=== PATIENT | female | born 1955 | race Caucasian/White ===

== ENCOUNTER → 2019-05-11 | Day surgery (SDC) | payer OTHER ==
--- NOTE | 2019-05-12 07:09 | OP ---
DATE OF OPERATION: 05/11/2019 PREOPERATIVE DIAGNOSES: Right breast mass and right axillary adenopathy, suspicious. POSTOPERATIVE DIAGNOSES: Right breast mass and right axillary adenopathy, suspicious. PROCEDURE: Right axillary lymph node and right breast ultrasound-guided core biopsies. ANESTHESIA: Local. ATTENDING SURGEON: Julienne Belle MD ESTIMATED BLOOD LOSS: Minimal. COMPLICATIONS: None. PROCEDURE: Patient was made aware of the risks and benefits of the procedure and consented. The right axillary node was approached first. Under sterile conditions with 1% lidocaine for local anesthesia a small melissa was made in the skin. Using a 13-gauge suction biopsy device via inferior approach under ultrasound guidance multiple cores were obtained and submitted to Pathology. Likewise under ultrasound guidance an open coil HydroMARK clip was placed into the biopsy region. Well tolerated by patient. Steri-Strip and a sterile bandage were applied. The right breast mass at the 12 o'clock position, 3-4 cm from the nipple, was then approached. Under sterile conditions with 2% lidocaine for local anesthesia a small melissa was made in the skin and using a 13-gauge suction biopsy device under ultrasound guidance multiple cores were obtained and submitted to Pathology. Likewise under ultrasound guidance a bow tie clip was placed into the biopsy region. Well tolerated by patient. Steri-Strip and a sterile bandage were applied. There was an additional lesion in the 6 o'clock region, but after speaking with the referring physician, Dr. Morales, we elected to have her get a breast MRI assuming this is a malignancy and approach that lesion after that assessment. JULIENNE BELLE M.D. [id number]
--- NOTE | 2019-05-12 15:05 | PATH ---
Surgical Pathology Report Patient Name: FREDDY MARR [facility]. Rec. #: [id number] /Age/Gender: 1955 (Age: 63) / F Account: [id number] Location: [facility] Taken: 05/11/2019 Received: 05/11/2019 Reported: 05/12/2019 Physicians: Jacobo Morales M.D. Specimen(s) Received A: RIGHT AXILLA LYMPH NODE B: RIGHT BREAST 12:00 3-4 CM FN Clinical History Palpable mass Ultrasound findings: Highly suspicious/malignant Final Diagnosis A. RIGHT AXILLA LYMPH NODE, BIOPSY: METASTATIC CARCINOMA IN A BACKGROUND OF FIBROTIC AND LYMPHOID TISSUE. CARCINOMA MEASURES 1.4 CM IN GREATEST DIMENSION ON THIS SLIDE. Comment: The carcinoma morphologically is similar to the tumor in specimen B. B. RIGHT BREAST BIOPSY 12:00, 3-4 CM FN, BIOPSY: INVASIVE DUCTAL CARCINOMA, POORLY DIFFERENTIATED, MEASURING 1.1 CM IN LENGTH ON THIS SLIDE. Results of Estrogen Receptor (ER) and Progesterone Receptor (CT) studies performed on block "B1" at [facility] are as follows: ER (clone [id number] mouse monoclonal antibody by [employer]): <1% nuclear staining (Negative). CT (clone16 mouse monoclonal antibody by [employer]): 0% nuclear staining (Negative). Positive and negative controls (internal if applicable) show appropriate results. Formalin fixation and cold ischemic times are within current ASCO/CAP recommendations for ER, CT and Her2 testing. Comment: Immunohistochemical stain E-Cadherin performed and interpreted at [facility] shows diffuse membranous staining in the tumor cells, supports a ductal phenotype. Reports for Her 2 and Ki-67 to follow. Electronically Signed Jag Angel M.D. Addendum Reported: 05/13/2019 Addendum Diagnosis Biomarker Studies Results of Her2 (IHC) & Ki-67 studies performed on this specimen (block B1) at [place], [place] ([id number]) interpreted at [facility] are as follows: Her2 IHC (EP3 from [employer], formerly known as [id number], using Foster Polymer Refine detection kit): 3+ (Positive) Ki-67: ~40% (high proliferative index) Kiyoe Angel, M.D. Gross Description A. Received in formalin labeled "right axillary biopsy site 1," is a 1.7 x 1.0 x 0.1 cm aggregate of multiple hammond-yellow, irregular to cylindrical portions of fibroadipose tissue. The formalin is filtered and the specimen is entirely submitted in one cassette. B. Received in formalin labeled "right breast biopsy 12:00, 3-4 cm fn site 2," is a 1.7 x 1.5 x 0.2 cm aggregate of multiple hammond-yellow, irregular to cylindrical portions of fibroadipose tissue. The formalin is filtered and the specimen is entirely submitted in one cassette. Time to formalin fixation: Less than one minute Total formalin fixation time: Approximately 8 hours. 05/11/2019 [facility]05/11/2019
== END | disposition home or self-care (01) ==
LOC: FRADUS-SUR 08:14
PROVIDERS: ATTEND Surgery Surgical Oncology
PROC: 0HBT3ZX Excision of Right Breast, Percutaneous Approach, Diagnostic (ICD-10-PCS; principal; 2019-05-11)
PROC: 07B53ZX Excision of Right Axillary Lymphatic, Percutaneous Approach, Diagnostic (ICD-10-PCS; 2019-05-11)
PROC: BH40ZZZ Ultrasonography of Right Breast (ICD-10-PCS; 2019-05-11)
DX: C50.811 Malignant neoplasm of overlapping sites of right female breast (principal); C77.3 Secondary and unspecified malignant neoplasm of axilla and upper limb lymph nodes; Z17.1 Estrogen receptor negative status [ER-]; N63.10 Unspecified lump in the right breast, unspecified quadrant; R59.0 Localized enlarged lymph nodes
CPT/HCPCS: 19083; 76942-TC; 87899; 88305-TC; 88342-TC; A4648

== ENCOUNTER 2019-11-12 08:42 | Inpatient (IN) | payer OTHER ==
[2019-11-03 15:37] VITALS: BMI 22.8
--- NOTE | 2019-11-05 15:08 | HP ---
Admitting History and Physical - Primary Care Physician PCP: mariposa - Admission Chief Complaint: right breast cancer History of Present Illness: Patient is a 64 yo female who was noted to have a highly suspicious right breast mass and axillary lymph node on mammo and US on 05/05/19. The patient underwent us guided core biopsies on 05/11/19 which was c/w invasive ductal carcinoma (poorly dif) with metastatic right axillary lymph node ER/NM neg, Her 2 p ositive. The MRI done 05/13 was c/w more extensive dz superior to the known cancer. A core bx was recommended but patient opted to have a mastectomy after neoadjuvant chemo. Patient's MRI done 10/26 showed complete imaging response to chemotherapy. Patient is now to undergo bilateral mastectomy with right snbx (mag seed loc), lymphoscintogram possible andx with reconstruction. History Source: Patient - Past Medical History Heme/Onc: Yes: Cancer (05/2019-breast cancer) - Past Surgical History Additional Past Surgical History: TAHIR/BSO left breast exc bx (95) - Smoking History Smoking history: Never smoked Home Medications - Allergies Allergies/Adverse Reactions: Allergies Allergy/AdvReac Type Severity Reaction Status Date / Time No Known Allergies Allergy Verified 11/03/19 15:24 - Home Medications Home Medications: Ambulatory Orders Cholecalciferol (Vitamin D3) [Vitamin D3 -] 1,000 unit PO DAILY 11/03/19 Gabapentin [Neurontin -] 300 mg PO HS PRN 11/03/19 LORazepam [Ativan] 0.5 mg PO TID PRN 11/03/19 Metoprolol Succinate [Toprol Xl] 50 mg PO DAILY 11/03/19 Olanzapine [Zyprexa -] 2.5 mg PO HS 11/03/19 Pertuzumab [Perjeta] 420 mg IV ASDIR 11/03/19 Trastuzumab [Herceptin] 150 mg IV ASDIR 11/03/19 Family Medical History Family Hx Cancer: Sister (breast cancer at 48) Other Family History: paternal cousin-breast cancer at 36. paternal aunt-breast cancer at 30. pat great aunt-postmenopausal breast cancer. sister-Multiple myeloma. mat GM-ovarian cancer. sister x 2-BRCA 2 pos Review of Systems - Review of Systems Constitutional: reports: Loss of Appetite, Unintentional Wgt. Loss Gastrointestinal: reports: Constipation Physical Examination Constitutional: Yes: Well Nourished, Calm Breast(s): Yes: Other (Ptotic B cup breasts without skin changes or nipple discharge. On palpation, no masses noted at the right 12 oclock position (prev palpable). No other suspicious masses or adenopathy noted bilaterally.) Problem List - Problems (1) Breast cancer, right breast Code(s): C50.911 - MALIGNANT NEOPLASM OF UNSP SITE OF RIGHT FEMALE BREAST Qualifiers: Breast location: overlapping sites of breast Estrogen receptor status: negative Patient sex: female Qualified Code(s): C50.811 - Malignant neoplasm of overlapping sites of right female breast; Z17.1 - Estrogen receptor negative status [ER-] Assessment/Plan Plan Bilateral mastectomy right sentinel node bx with mag seed placement, lymphoscintogram, possible axillary node dissection with reconstruction
--- NOTE | 2019-11-11 13:57 | OP ---
DATE OF OPERATION: 11/11/2019 PREOPERATIVE DIAGNOSIS: Right breast cancer overlapping regions, status post neoadjuvant chemotherapy. POSTOPERATIVE DIAGNOSIS: Right breast cancer overlapping regions, status post neoadjuvant chemotherapy. PROCEDURE: Bilateral total mastectomies with a right axillary sentinel lymph node biopsy as well as localized axillary lymph node biopsy with bilateral subpectoral direct implant reconstruction by Dr. Jones using acellular dermal matrix. ANESTHESIA: General anesthesia. PRIMARY SURGEON: Jacobo Morales MD PROFESSOR OF RHETORIC: STACY Montenegro Primary surgeon for the bilateral direct implant reconstruction is Dr. Jacobo Jones. COMPLICATIONS: None. INDICATION FOR PROCEDURE: Briefly, the patient is a 64-year-old postmenopausal female with [place] descent. She has a strong family history with a sister with breast cancer at age 48. A paternal cousin had breast cancer at age 36. A paternal aunt had breast cancer in her 30s, and a paternal great-aunt also had breast cancer. Two of her sisters tested BRCA2 positive, but the patient herself tested negative. The patient underwent a TAHIR/BSO in the past. She had a left breast fibroadenoma excised in 2014. She then was found to have an abnormal mammography in February 2019 with a 1-cm density in the right breast 12 o'clock region with a suspicious node seen in the right axillary region. core biopsy of the breast showed a poorly differentiated invasive duct cancer which was ER/TN negative, HER-2/yu positive with a Ki-67 of 40%. Node biopsy was positive as well. MRI showed the main cancer was from disease superior to the main lesion. She underwent TCHP chemotherapy which finished on October 06, 2018. Followup MRI showed a complete radiologic response. The patient was advised on undergoing mastectomy on the right side, chose to have prophylactic mastectomy on the left. She understood the need for a sentinel lymph node biopsy on the right side with localized biopsy as well of the previously biopsy-positive node with possible axillary lymph node dissection. She was brought in for the procedure on November 11, 2019. She was seen by Plastic Surgery preoperatively and decided on bilateral direct implant reconstruction. The patient was brought in for the procedure on November 11, 2019, and at [facility] underwent a lymphoscintigraphy with a right breast periareolar injection of technetium 99. She also had a Magseed placement into the previously biopsied right axillary lymph node. She was brought to the [place] holding area. DESCRIPTION OF PROCEDURE: In the holding area, site verification was made and informed consent was obtained. She was brought into the operating room, laid on the OR table in the supine position. She did have preoperative COVID testing which was negative and was marked preoperatively by the plastic surgeon as well. She was given 2 g of Ancef prior to incision, and both breasts were sterilely prepped and draped in the usual fashion. Venodynes were placed on the lower extremities prior to induction. Lymphazurin blue, 3 mL, was injected intradermally around the right breast nipple-areolar complex, and she was sterilely prepped and draped. Once she was properly anesthetized, the right axillary sentinel lymph node biopsy was first performed. Incision was made just below the hair-bearing area of the right axilla, and the Mediameeting device was then used to localize the magnetic clip in the low right axilla. This corresponded as well to hot blue lymph node with a 10-second gamma count of 6253. This was in the level I region of the right axilla. Specimen x-ray of this lymph node showed the 2 clips in question, and frozen section came back negative. A second sentinel lymph node was found in the level I region of the right axilla with a 10-second gamma count of 2250, and frozen section on that node also came back negative. Background count after removal of these 2 nodes was 80, and no other nodes were removed. Hemostasis was achieved. At this point, the right skin-sparing mastectomy was performed through an elliptical incision encompassing the entire right breast nipple-areolar complex. Skin flaps were raised using the PEAK radiofrequency device superiorly to the level of the clavicle, medially to the level of the sternum, laterally to the level of the latissimus, and inferiorly below the level of the inframammary fold. The breast was taken down off the pectoralis major muscle from medial to lateral, completely removed intact. It was oriented with a long lateral, short superior suture and weighed to allow for appropriate cosmetic result. All visible breast tissue was excised. A separate anterior margin underneath the skin flap was taken and sent separately to pathology as anterior margin, with a suture making the biopsy cavity side. This was sent down to pathology in formalin. Hemostasis was achieved and the wound was copiously irrigated with warm sterile saline. At this point, instruments and gloves were changed, and the right mastectomy was performed prophylactically. An elliptical incision was performed around the left breast nipple-areolar complex using a skin-sparing mastectomy technique. Again skin flaps were raised superiorly to the level of the clavicle, medially to the level of the sternum, laterally to the level of the latissimus, and inferiorly below the level of the inframammary fold. The breast was taken down off the pectoralis major muscle from medial to lateral, completely removed intact. It was oriented with a long lateral, short superior suture and weighed to allow for appropriate cosmetic result. Hemostasis was achieved, and the wound was copiously irrigated with warm sterile saline. There was a specimen radiograph taken of the right breast which showed the clip in question in the right breast, which was removed. At this point, Dr. Jones became the primary surgeon, performed bilateral subpectoral implant reconstructions using acellular dermal matrix sutured into the inferolateral aspect of both pectoralis major muscles. Two Fabien drains will be placed around each implant and brought through separate stab incisions on the lateral skin flap and sutured in place using 3-0 nylon suture. All wounds will be closed by Plastic Surgery. Estimated blood loss at this point in the procedure was about 100 mL, and she was hemodynamically stable throughout. The patient will be recovered in the postanesthesia care unit postoperatively and will be admitted postoperatively for pain and wound management. Yanick [id number]
--- NOTE | 2019-11-11 14:26 | SURG ---
Surgery Agronomy Professor Note Agronomy Professor: David Danielle PA-C Date of Service: 11/11/19 Diagnosis: breast cancer Procedure: bilateral breast reconstruction s/p mastectomy with alloderm and implants. I was present for the entirety of the operative procedure. For further detail, please refer to operative report. Visit type - Case Type Case Type: Scheduled - Emergency Emergency Visit: No - New patient This patient is new to me today: Yes Date on this admission: 11/11/19 - Critical Care Critical Care patient: No
[2019-11-11] MEDS: ONDANSETRON 4 MG/2 ML VIAL IVPUSH PRN ×2 (14:41→15:50)
[2019-11-11] MEDS: HYDROmorphone HCL CARPU-JECT 2 MG/1 ML DISP.SYRIN IVPUSH ONE ×2 (16:00→19:39)
[2019-11-11] MEDS: CEFAZOLIN 1 GM/D5W 1 GM/50 ML BAG IVPB SCH ×2 (19:38→22:26)
[2019-11-11] MEDS: GABAPENTIN 300 MG CAPSULE PO SCH (21:35)
[2019-11-11] MEDS: OLANZapine 2.5 MG TABLET PO SCH (21:35)
[2019-11-11] MEDS: oxyCODONE HCL 5 MG TABLET PO PRN (21:40)
[2019-11-12] MEDS: CEFAZOLIN 1 GM/D5W 1 GM/50 ML BAG IVPB SCH ×4 (02:13→21:10)
[2019-11-12] MEDS: oxyCODONE HCL 5 MG TABLET PO PRN ×2 (03:54→09:11)
--- NOTE | 2019-11-12 08:01 | PN ---
Progress Note (short form) - Note Progress Note: PLASTIC SURGERY POD #1 No acute events since surgery per RN notes. Alert. Sitting in bed at 30 degrees. C/o mild incisional tenderness. Adequate pain control with medications ordered. Hasn't been OOB yet. Denies n/v/f/c, CP, palpitations, SOB or HURST. Last Vital Signs Temp Pulse Resp BP Pulse Ox 99.0 F 96 H 18 91/48 L 99 11/12/19 05:00 11/12/19 05:00 11/12/19 05:00 11/12/19 05:00 11/12/19 05:00 CARLOS Drain Output 11/11/19 11/12/19 11/12/19 20:20 01:58 06:52 #1 Right 40 30 20 #2 Right 20 20 20 #3 Left 20 20 20 #4 Left 40 40 20 GEN: a&o. nad PULM: Unlabored respirations on room air. COR: rrr BREASTS: Steri strips intact. Cap refill < 3 seconds. Flaps viable. No hematoma. CARLOS drain x4 on bulb suction (serosanguinous) LE: all compartments soft. Supple. NT. A/P: 64 yo female POD #1 s/p bilateral mastectomy right sentinel node bx with mag seed placement, lymphoscintogram, with bilateral breast reconstruction s/p mastectomy with alloderm and implants -Incentive spirometer -Tylenol for fever > 100.4F -Pain management PRN -Monitor/record CARLOS output q shift -Teach how to use CARLOS properly (empty and replace back on suction) as she will be going home with them (will be removed in office) -OOB and ambulate with assistance -DC planning home Above plan discussed with Dr. Jones and agrees Problem List - Problems (1) Breast cancer, right breast Code(s): C50.911 - MALIGNANT NEOPLASM OF UNSP SITE OF RIGHT FEMALE BREAST Qualifiers: Breast location: overlapping sites of breast Estrogen receptor status: negative Patient sex: female Qualified Code(s): C50.811 - Malignant neoplasm of overlapping sites of right female breast; Z17.1 - Estrogen receptor negative status [ER-]
[2019-11-12 08:08] LABS: HEMATOCRIT 29.8 % (32.4-45.2); HEMOGLOBIN 9.9 GM/dl (10.7-15.3); MCH 33.2 pg (25.7-33.7); MCHC 33.3 g/dl (32.0-36.0); MEAN CELL VOLUME 99.7 fl (80-96); PLATELET COUNT 186 K/MM3 (134-434); RBC 2.99 M/mm3 (3.60-5.2); RDW 14.8 % (11.6-15.6); WHITE BLOOD COUNT 11.5 K/mm3 (4.0-10.8)
[~2019-11-12 08:42] MED LIST: BUPIVACAINE HCL/PF 0.5% (5 MG/ML) 30 ML VIAL IJ ONE; BUPIVACAINE HCL/PF 0.5% (5MG/ML) 10 ML VIAL ONE; BUPIVACAINE HCL/PF 2.5 MG/ML - 30 ML VIAL IJ ONE; BUPIVACAINE LIPOSOME/PF (EXPAREL) 266 MG/20 ML VIAL NR ONE; BUPIVACAINE LIPOSOME/PF (EXPAREL) 266 MG/20 ML VIAL ONE; DEXAMETHASONE SOD PHOSPHATE 4 MG/1 ML VIAL ONE; DEXTROSE 5%-0.45% SALINE 1,000 ML IV SCH; GENTAMICIN SO4 80 MG/2 ML VIAL ONE; GLYCOPYRROLATE 0.2 MG/1 ML VIAL ONE; HYDROmorphone HCl 2 MG/ML VIAL IVPUSH ONE; HYDROmorphone HCl 2 MG/ML VIAL ONE; ISOSULFAN BLUE 10 MG/ML VIAL SQ ONE; LACTATED RINGERS SOLUTION 1,000 ML IV SCH; LIDOCAINE 1% P/F 10 MG/ML VIAL ONE; LIDOCAINE 1%/EPI 1:100000 (20 ML MULTI DOSE VIAL) ONE; LIDOCAINE HCL 1%, 10 MG/ML (20ML VIAL) ONE; LORazepam 0.5 MG TABLET PO PRN; METOPROLOL TARTRATE 5 MG/5 ML VIAL ONE; MIDAZOLAM HCL 2 MG/2 ML SINGLE DOSE VIAL ONE; NEOSTIGMINE METHYLSULFATE 0.5 MG/ML - 10 ML MDV ONE; ONDANSETRON 4 MG/2 ML VIAL IVPUSH PRN; ONDANSETRON 4 MG/2 ML VIAL ONE; PROMETHAZINE HCL 25 MG/1 ML VIAL IVPUSH PRN; PROPOFOL 20 ML ONE; SODIUM CHLORIDE 0.9% P/F 10 ML VIAL IJ ONE; SUCCINYLCHOLINE CHLORIDE 200 MG/10 ML SYRINGE ONE; ceFAZolin SODIUM 1 GM VIAL ONE; oxyCODONE HCL 5 MG TABLET PO PRN
[2019-11-12] MEDS ORDERED: diazePAM 5 MG TABLET PO PRN (09:03)
[2019-11-12] MEDS: ACETAMINOPHEN 325 MG TABLET (FP) PO PRN ×2 (09:11→20:09)
--- NOTE | 2019-11-12 09:11 | PN ---
Progress Note, Physician Chief Complaint: right breast cancer S/P neoadjuvant chemotherapy and bilateral non nipple sparing mastectomies and right sentenl and axillary node biopsy with implant reconstruction History of Present Illness: patient is eating, still with pain using oxycodone prn, will add valium and Dc her ativan prn, She had some urinary retention last night and had to be straight cathed, She is urinating this morning. IV needs replaced for IV ANBX, She has not ambulated yet. temp 99, BP 91/48 - Current Medication List Current Medications: Active Medications Acetaminophen (Tylenol -) 650 mg PO Q4H PRN PRN Reason: FEVER Diazepam (Valium -) 5 mg PO BID PRN PRN Reason: MUSCLE SPASMS Gabapentin (Neurontin -) 300 mg PO [facility] Last Admin: 11/11/19 21:35 Dose: 300 mg Documented by: Heparin Sodium (Porcine) (Heparin -) 5,000 unit SQ BID [facility] Dextrose/Sodium Chloride (D5-1/2ns -) 1,000 mls @ 100 mls/hr IV ASDIR [facility] Last Admin: 11/11/19 19:38 Dose: Not Given Documented by: Cefazolin Sodium (Ancef 1 Gm Premixed Ivpb -) 1 gm in 50 mls @ 100 mls/hr IVPB Q6H-IV [facility] Stop: 11/18/19 14:59 Last Admin: 11/12/19 02:13 Dose: 100 mls/hr Documented by: Metoprolol Succinate (Toprol Xl -) 50 mg PO [facility] Last Admin: 11/11/19 21:35 Dose: 50 mg Documented by: Olanzapine (Zyprexa -) 2.5 mg PO [facility] Last Admin: 11/11/19 21:35 Dose: 2.5 mg Documented by: Ondansetron HCl (Zofran Injection) 4 mg IVPUSH Q6H PRN PRN Reason: NAUSEA AND/OR VOMITING Oxycodone HCl (Roxicodone -) 5 mg PO Q4H PRN PRN Reason: PAIN LEVEL 1-5 Oxycodone HCl (Roxicodone -) 10 mg PO Q4H PRN PRN Reason: PAIN LEVEL 6-10 Last Admin: 11/12/19 03:54 Dose: 10 mg Documented by: - Objective Vital Signs: Vital Signs Temperature 99.0 F 11/12/19 05:00 Pulse Rate 96 H 11/12/19 05:00 Respiratory Rate 16 11/12/19 08:27 Blood Pressure 91/48 L 11/12/19 05:00 O2 Sat by Pulse Oximetry (%) 98 11/12/19 08:27 Constitutional: Yes: No Distress Breast(s): Yes: Other (Bilateral flaps viable no hematoma or infrction incision intact with steristrips CARLOS drains functioning well, dressing changed) Labs: CBC, BMP 11/12/19 07:12 Problem List - Problems (1) Breast cancer, right breast Problems reviewed: Yes Code(s): C50.911 - MALIGNANT NEOPLASM OF UNSP SITE OF RIGHT FEMALE BREAST Qualifiers: Breast location: overlapping sites of breast Estrogen receptor status: negative Patient sex: female Qualified Code(s): C50.811 - Malignant neoplasm of overlapping sites of right female breast; Z17.1 - Estrogen receptor negative status [ER-] Assessment/Plan Paln for discharge in am Valium added for pain control monitor BP and urinary output oxycodone or tylenol prn cefadroxil IV if IV placement is successful incentive spirometry OOB today
[2019-11-12] MEDS: HEPARIN NA (PORCINE) 5,000 UNITS/ML 1ML VIAL SQ SCH ×2 (09:12→21:24)
[2019-11-12] MEDS ORDERED: SODIUM CHLORIDE 500 ML IV ONE (12:00)
[2019-11-12] MEDS ORDERED: DEXTROSE 5%-0.45% SALINE 1,000 ML IV SCH (12:00)
--- NOTE | 2019-11-12 12:38 | PN ---
Progress Note (short form) - Note Progress Note: Patients BP decreased to 78/43 S/P bilateral total mastectomies SNBX implant reconstruction 11/11/2019 POD #1. She is asymptomatic in bed now. Hold pain medication except tylenol and Dr Morales ordered 500cc bolus NS. IV was restarted. Hold metoprolol if BP continues to be low this evening. [facility] Problem List - Problems (1) Breast cancer, right breast Code(s): C50.911 - MALIGNANT NEOPLASM OF UNSP SITE OF RIGHT FEMALE BREAST Qualifiers: Breast location: overlapping sites of breast Estrogen receptor status: negative Patient sex: female Qualified Code(s): C50.811 - Malignant neoplasm of overlapping sites of right female breast; Z17.1 - Estrogen receptor negative status [ER-]
--- NOTE | 2019-11-12 13:21 | PN ---
Progress Note (short form) - Note Progress Note: S: Pt. comfortable in bed c/o mild nausea, but not significant enough for treatment. O: VAS 10 A/P: POD#1 s/p bilateral mastecomy with reconstruction 1. using pain meds and antiemetics appropriately. continue as ordered
[2019-11-12] MEDS ORDERED: SODIUM CHLORIDE 500 ML IV STA (15:14)
[2019-11-12] MEDS ORDERED: SODIUM CHLORIDE 1,000 ML IV SCH (15:30)
[2019-11-12] MEDS: GABAPENTIN 300 MG CAPSULE PO SCH (21:10)
[2019-11-12] MEDS: OLANZapine 2.5 MG TABLET PO SCH (21:10)
[2019-11-13] MEDS: CEFAZOLIN 1 GM/D5W 1 GM/50 ML BAG IVPB SCH ×2 (03:08→09:46)
[2019-11-13] MEDS: ACETAMINOPHEN 325 MG TABLET (FP) PO PRN ×2 (03:47→09:47)
--- NOTE | 2019-11-13 09:39 | PN ---
Progress Note, Physician Chief Complaint: right breast cancer s/p neoadjuvant chemotherapy History of Present Illness: The patient is a 64 y.o female who was diagnosed with a HER2+ node positive breast cancer and underwent neoadjuvant chemotherapy and had a complete radiologic and clinical response. She presents now for a right breast mastectomy with axillary sentinel lymph node biopsy and localized axillary biops y with contralateral prophylactic mastectomy and bilateral direct to implant reconstruction. - Current Medication List Current Medications: Active Medications Acetaminophen (Tylenol -) 650 mg PO Q4H PRN PRN Reason: FEVER Last Admin: 11/13/19 03:47 Dose: 650 mg Documented by: Gabapentin (Neurontin -) 300 mg PO HS [facility] Last Admin: 11/12/19 21:10 Dose: 300 mg Documented by: Heparin Sodium (Porcine) (Heparin -) 5,000 unit SQ BID [facility] Last Admin: 11/12/19 21:24 Dose: 5,000 unit Documented by: Cefazolin Sodium (Ancef 1 Gm Premixed Ivpb -) 1 gm in 50 mls @ 100 mls/hr IVPB Q6H-IV [facility] Stop: 11/18/19 14:59 Last Admin: 11/13/19 03:08 Dose: 100 mls/hr Documented by: Sodium Chloride (Normal Saline -) 1,000 mls @ 75 mls/hr IV ASDIR [facility] Last Admin: 11/12/19 16:24 Dose: 75 mls/hr Documented by: Olanzapine (Zyprexa -) 2.5 mg PO HS [facility] Last Admin: 11/12/19 21:10 Dose: 2.5 mg Documented by: Ondansetron HCl (Zofran Injection) 4 mg IVPUSH Q6H PRN PRN Reason: NAUSEA AND/OR VOMITING Oxycodone HCl (Roxicodone -) 5 mg PO Q4H PRN PRN Reason: PAIN LEVEL 1-5 - Objective Vital Signs: Vital Signs Temperature 99.6 F 11/13/19 06:00 Pulse Rate 102 H 11/13/19 06:00 Respiratory Rate 18 11/13/19 06:00 Blood Pressure 107/64 11/13/19 06:00 O2 Sat by Pulse Oximetry (%) 97 11/13/19 06:00 Constitutional: Yes: Well Nourished, No Distress, Calm Eyes: Yes: WNL HENT: Yes: Atraumatic, Normocephalic Neck: Yes: Supple, Trachea Midline Cardiovascular: Yes: Regular Rate and Rhythm Respiratory: Yes: Regular, CTA Bilaterally Gastrointestinal: Yes: Normal Bowel Sounds, Soft ...Rectal Exam: Yes: Deferred Breast(s): Yes: WNL (urinary retension resolved) Musculoskeletal: Yes: WNL Extremities: Yes: WNL Integumentary: Yes: WNL Wound/Incision: Yes: Clean/Dry, Well Approximated Neurological: Yes: Alert, Oriented Psychiatric: Yes: WNL Labs: CBC, BMP 11/12/19 07:12 Problem List - Problems (1) Breast cancer, right breast Assessment/Plan: The patient is POD #2 s/p bilateral total mastectomies with right axillary sentinel lymph node biopsy as well as localized axillary biopsy with bilateral direct to implant reconstructions. She had some post operative urinary retension and hypotension which has resolved with fluid boluses. She is doing well POD #2 and has good pain control. Her drains are functioning well and her wounds are clean, dry, and intact with viable skin flaps. She is stable for discharge today. Will send home on percocet for pain and cefadroxil antibiotics . She should record drain outputs daily and follow up in the office in 1 week. Problems reviewed: Yes Code(s): C50.911 - MALIGNANT NEOPLASM OF UNSP SITE OF RIGHT FEMALE BREAST Qualifiers: Breast location: overlapping sites of breast Estrogen receptor status: negative Patient sex: female Qualified Code(s): C50.811 - Malignant neoplasm of overlapping sites of right female breast; Z17.1 - Estrogen receptor negative status [ER-]
--- NOTE | 2019-11-13 09:45 | DS ---
Physical Examination Vital Signs: Vital Signs Temperature 99.6 F 11/13/19 06:00 Pulse Rate 102 H 11/13/19 06:00 Respiratory Rate 18 11/13/19 06:00 Blood Pressure 107/64 11/13/19 06:00 O2 Sat by Pulse Oximetry (%) 97 11/13/19 06:00 Constitutional: Yes: Well Nourished, No Distress Eyes: Yes: WNL HENT: Yes: Atraumatic, Normocephalic Neck: Yes: WNL Cardiovascular: Yes: Regular Rate and Rhythm Respiratory: Yes: Regular, CTA Bilaterally Gastrointestinal: Yes: Normal Bowel Sounds, Soft ...Rectal Exam: Yes: Deferred Breast(s): Yes: WNL Extremities: Yes: WNL Integumentary: Yes: WNL Wound/Incision: Yes: Clean/Dry, Well Approximated Neurological: Yes: Alert, Oriented ...Motor Strength: WNL Psychiatric: Yes: WNL Labs: CBC, BMP 11/12/19 07:12 Discharge Summary Problems reviewed: Yes Reason For Visit: RIGHT BREAST CA right breast cancer HER2 positive Procedures: Principal: Bilateral total mastectomies with right axillary sentinel lymph node biopsy and localized right axillary biopsy with bilateral direct to implant reconstructions with acellular dermal matrix Hospital Course: The patient was admitted postoperatively after s/p bilateral total mastectomies with right axillary sentinel lymph node biopsy as well as localized axillary biopsy with bilateral direct to implant reconstructions. She had some post operative urinary retension and hypotension which resolved with fluid boluses and straight catheterization. She was doing well POD #2 and had good pain control and was stable for discharge. Her drains were functioning well and her wounds were clean, dry, and intact with viable skin flaps. She was sent home on percocet for pain and cefadroxil antibiotics. She should record drain outputs daily and follow up in the office in 1 week. Plan of Treatment: Record drain outputs daily. NO bath/shower until drains removed. Keep compressive bra in place day/night. NO heavy exercise or activity Condition: Good - Instructions Diet, Activity, Other Instructions: Post Operative Instructions - [facility] We hope your recovery will be uneventful. For those of you who have been given general anesthesia, there is a possibility you might have some lightheadedness and possibly nausea. It is important that each patient, especially those who have had general anesthesia, follow these instructions, please: 1. Do NOT operate a motor vehicle for 24 hours. 2. Do NOT drink any alcoholic beverages for 24 hours. 3. Do NOT take any sedatives, narcotics, or tranquilizers for 24 hours unless specifically ordered by your surgeon. 4. Do NOT undertake any strenuous exercise or outside activity for 24 hours unless specifically permitted by your surgeon. 5. Eat light foods that are easy to digest. If you have any problems with nausea and vomiting, lie down and rest. If it continues, call your surgeon. 6. Call your surgeon AT ONCE if you have problems with: a. Bleeding b. Urinating c. Excessive pain or drainage d. Numbness If any problems occur, call your physician first. If you cannot reach him/her, call the Ambulatory Surgery Unit at [phone], or the Emergency Room at [phone]. Follow up with Drs. Morales / Darnell in 7 days. Medication: Vicodin E-S OR Percocet 1-2 tablets every 4-6 hrs as needed for 5-7 days. Wound Care: Keep wound dry and clean for 48 hours. You may remove the dressing after 48 hours and may shower. Keep steri-strips in place until follow-up appointment No heavy lifting or strenuous activities. BREAST SURGERY INSTRUCTIONS Margarito Morales M.D., HORACIO Morales M.D., FACS Julienne Patrick M.D., FACS 1. Please call the office at to make a follow up appointment with your surgeon. This number can be also used for any urgent issues you may have. 2. Call us immediately if any of the following occur: *Bleeding from the incision or drain site (a small amount is normal) *Fever or chills *Redness and worsening tenderness around the surgical site *Drainage of pus or fluid from the incision or drain site 3. You may change the surgical dressing two (2) days after your surgery, and may shower then. If you have drains, you may shower after they have been removed, until then take a sponge bath. 4. It is normal for there to be some bruising and tenderness around the surgical site, and the breast may also be firm in this area. 5. Your surgeon used 3M DuraPrep Surgical Solution, a bacteria-killing skin preparation. It is recommended that this film remain on the skin after the procedure. The film will gradually wear away. If, however, early removal is desired: 1. Apply 8610 or 8611 3M Remover solution to the prepped area, keeping away from the wound edge or puncture site. Wipe off with a disposable towel. OR 2. Soak gauze with 70% Isopropyl alcohol and place on the prepped area for at least 40 seconds. Lightly scrub to remove the solution. 6. Please wear a comfortable bra (sports or surgical bra) all day and all night until your first follow-up visit with your surgeon. 7. The pain medicine you have been prescribed may make you constipated; make sure you drink plenty of water. You may use an over the counter laxative if needed. 8. You may resume your normal diet after surgery, although you may want to avoid rich foods for the first twenty-four (24) hours after surgery. Alcoholic drinks should be avoided while taking the prescribed pain medicine. 9. You may resume normal activities as long as there is no discomfort, but do not do upper body exercises until after your follow-up appointment. Do not lift anything heavier than a large phone book. You may resume driving once you have stopped taking the prescribed pain medicine and feel comfortable doing arm movements. No shower, CARLOS draing empty and record twice daily , aisha arauz Referrals: Chester Jones MD [Staff Physician] - Jacobo Morales MD [Staff Physician] - 1 Week - Home Medications Comprehensive Discharge Medication List: Ambulatory Orders Cholecalciferol (Vitamin D3) [Vitamin D3 -] 1,000 unit PO DAILY 11/03/19 Gabapentin [Neurontin -] 300 mg PO HS 11/03/19 LORazepam [Ativan] 0.5 mg PO TID PRN 11/03/19 Metoprolol Succinate [Toprol Xl] 50 mg PO HS 11/03/19 Olanzapine [Zyprexa -] 2.5 mg PO HS 11/03/19 Pertuzumab [Perjeta] 420 mg IV ASDIR 11/03/19 Trastuzumab [Herceptin] 150 mg IV ASDIR 11/03/19 Cefadroxil 500 mg PO BID #20 capsule 11/12/19 Diazepam [Valium] 5 mg PO Q8H PRN #10 tablet MDD 2 11/12/19 Oxycodone HCl/Acetaminophen [Percocet 5-325 mg Tablet] 1 - 2 tab PO Q6H PRN #20 tab MDD 4 11/12/19
[2019-11-13] MEDS: HEPARIN NA (PORCINE) 5,000 UNITS/ML 1ML VIAL SQ SCH (09:48)
[2019-11-13 10:16] VITALS: PULSE 92
[2019-11-13 13:32] VITALS: BP 115/66; TEMP 98.9
--- NOTE | 2019-11-17 17:26 | PATH ---
Surgical Pathology Report Patient Name: FREDDY MARR [facility]. Rec. #: [id number] /Age/Gender: 1955 (Age: 64) / F Account: [id number] Location: [facility] MED-SURG Taken: 11/11/2019 Received: 11/11/2019 Reported: 11/17/2019 Physicians: Jacobo Morales M.D. Specimen(s) Received A: RIGHT BREAST SENTINEL NODE # 2 (FS) B: RIGHT BREAST SENTINEL NODE #1 (FS) C: LEFT BREAST, MASTECTOMY D: RIGHT BREAST, MASTECTOMY E: RIGHT BREAST ANTERIOR MARGIN Clinical History Right breast cancer Intraoperative Consult Diagnosis A. Right breast sentinel node #2, frozen section: One negative lymph node. B. Right breast sentinel node #1, frozen section: One negative lymph node. Anton Jordan M.D., 11/11/2019 Final Diagnosis A. Lymph node, right breast sentinel #2, excision (FS): One lymph node, negative for metastatic carcinoma ON H&E stained sections and cytokeratin (AE1/3) Immunostain. (0/1) B. Lymph node, right breast sentinel #1, excision (FS): One lymph node, negative for metastatic carcinoma on H&E stained sections and cytokeratin (AE1/3) Immunostain. (0/1) (See comment). Comment: The lymph node shows areas of dense fibrosis and histiocytic/giant cell reaction, consistent with treated metastatic tumor. C. Breast, left, total mastectomy: Benign breast tissue showing fibroadenoma , small radial scar, stromal fibrosis, fibrocystic AND columnar cell changes. Nipple showing small compound nevus. Skin with no pathologic findings. D. breast, right, total mastectomy: Benign breast tissue showing dense hyalinizing fibrosis and histiocytic/giant cell reaction, consistent with treated tumor bed tissue (upper inner quadrant). No residual carcinoma is identified. Remaining breast tissue shows sclerosed fibroadenoma with associated calcifications, focal sclerosing adenosis and columnar cell change. Nipple and skin with no pathologic findings. Pathologic stage (yptnm): ypT0 ypN0. Comment: See also prior right breast and right axillary lymph node biopsy report ([id number]; 05/11/19). E-cadherin immunostain (performed at [facility]; block D8) was used in the evaluation of this case. E. anterior margin, right breast, excision: Benign predominantly fatty breast tissue. Positive and negative controls (internal if applicable) show appropriate results. Electronically Signed Isamar Jordan M.D. Gross Description A. Received fresh labeled "right breast, sentinel node #2," is a 0.7 x 0.4 x 0.2 cm lymph node with attached fatty tissue. Frozen section is performed on the lymph node. The frozen section residue is entirely submitted in one cassette. B. Received fresh labeled "right breast sentinel node #1," is a 1.0 x 0.6 x 0.3 cm lymph node with attached fatty tissue. Frozen section is performed on the lymph node. The frozen section residue is entirely submitted in one cassette. C. Received in formalin, labeled "left breast mastectomy," is a 248 gram, 13.5 x 12.0 x 2.3 cm. left mastectomy specimen with a short suture marking the superior aspect and a long suture marking the lateral aspect of the specimen, per the surgeon. The anterior surface displays a 5.2 x 2.7 cm hammond, elliptical portion of skin with a 1.1 cm in diameter nipple. The deep margin is inked black and the anterior soft tissue margin is inked blue. The specimen is serially sectioned from medial to lateral. Sectioning reveals abundant dense, white, focally firm fibrous tissue. No lesions are identified. [employer]ter sections are submitted in 16 cassettes as follows: 1-serially sectioned nipple; 2-subareolar shave; 3-5-upper outer quadrant; 6-8-lower outer quadrant; 9-11-upper inner quadrant; 12-14-lower inner quadrant; 15-skin and anterior soft tissue margin; 16-deep margin. D. Received in formalin, labeled "right breast mastectomy," is a 275 gram, 16.0 x 14.5 x 3.8 cm. right mastectomy specimen with a short suture marking the superior aspect and a long suture marking the lateral aspect of the specimen, per the surgeon. The anterior surface displays a 4.0 x 2.7 cm hammond, elliptical portion of skin with a 1.0 cm in diameter nipple. The deep margin is inked black and the anterior soft tissue margin is inked blue. The specimen is serially sectioned from lateral to medial. Sectioning reveals abundant dense, white, focally firm fibrous tissue. There is a melendrez metallic by a clip identified in the upper inner quadrant (UIQ). The biopsy clip is 0.3 cm from the anterior soft tissue margin. There is firm fibrous tissue associated with the clip but no definitive mass is identified. Oyster Planter sections are submitted in 18 cassettes as follows: 1-serially sectioned nipple; 2-subareolar shave; 3-6-UIQ fibrous to firm tissue surrounding biopsy clip with anterior soft tissue margin; 7-uninvolved UIQ; 8-10-lower inner quadrant; 11-13-upper outer quadrant; 14-16-lower outer quadrant; 17-skin; 18-deep margin. Time to formalin fixation: 50 minutes Total formalin fixation time: Approximately 29 hours E. Received in formalin labeled "right breast anterior margin," is a 3.1 x 3.0 x 0.8 cm portion of fibroadipose tissue with a suture marking the biopsy cavity side, per the surgeon. The new margin is inked blue and the specimen is serially sectioned. The specimen is entirely submitted in 4 cassettes. 11/11/2019 christian11/11/2019
== END 2019-11-13 13:35 | disposition home or self-care (01) | DRG 581 ==
LOC: FASUSAT 08:42 → FM/S 08:42 → FASUSAT 11:40 → FM/S 11:41
PROVIDERS: ADMIT Surgery Surgical Oncology; ATTEND Surgery Surgical Oncology
PROC: 0HTV0ZZ Resection of Bilateral Breast, Open Approach (ICD-10-PCS; principal; 2019-11-11 11:20)
PROC: 07B50ZX Excision of Right Axillary Lymphatic, Open Approach, Diagnostic (ICD-10-PCS; 2019-11-11 11:20)
PROC: 0HHV0NZ Insertion of Tissue Expander into Bilateral Breast, Open Approach (ICD-10-PCS; 2019-11-11 11:20)
DX: C50.811 Malignant neoplasm of overlapping sites of right female breast (principal); Z17.0 Estrogen receptor positive status [ER+]
CPT/HCPCS: 19281; 36415; 76098-TC-FY; 78195-TC; 85027; 88307-TC; 88331-TC; 94760; A9541; J1644